=== PATIENT | female | born 1990 | race Caucasian/White ===

== ENCOUNTER → 2019-02-01 | Outpatient (CLI) | payer BC ==
--- NOTE | 2019-02-01 09:39 | US ---
EXAMINATION TYPE: US kidneys/renal and bladder DATE OF EXAM: 02/01/2019 COMPARISON: NONE CLINICAL HISTORY: R35.0 Increased frequency of urination. patient supposed to have ultrasound 10 year s ago for increase urination, no other symptoms now EXAM MEASUREMENTS: Right Kidney: 9.5 x 4.9 x 4.0 cm Left Kidney: 11.8 x 4.9 x 5.1 cm Right Kidney: No hydronephrosis or masses seen Left Kidney: No hydronephrosis or masses seen Bladder: wnl Bilateral Jets seen: yes There is no evidence for hydronephrosis at this point in time. No nephrolithiasis is seen. No george s are identified. The urinary bladder is anechoic. Bilateral ureteral jets are seen. IMPRESSION: Unremarkable renal ultrasound. No hydronephrosis nor nephrolithiasis. Urinary bladder is anechoic with visualization of bilateral ureteral jets.
== END | disposition home or self-care (01) ==
LOC: RADUSWWP 08:20
PROVIDERS: ATTEND Internal Medicine
DX: N28.89 Other specified disorders of kidney and ureter (principal)
CPT/HCPCS: 76770